=== PATIENT | male | born 1995 | race American Indian/Alaskan Native ===

== ENCOUNTER 2020-05-24 06:38 | Emergency (ER) | payer SELFPAY ==
[2020-05-24] MEDS ORDERED: NEOMY 3.5 MG/BACIT 400 UNITS/POLY B 5000 UNITS/GM OINT PACKET TP ONE (10:00)
[2020-05-24] MEDS ORDERED: DIPHtheria,PERTUSSIS(ACELL),TETANUS VACCINE/PF 0.5 ML VIAL IM ONE (10:00)
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
[2020-05-24 10:47] VITALS: BP 146/96
== END 2020-05-24 10:34 | disposition home or self-care (01) ==
LOC: ED 06:38
DX: S50.812A Abrasion of left forearm, initial encounter (principal); M79.662 Pain in left lower leg; V49.59XA Passenger injured in collision with other motor vehicles in traffic accident, initial encounter; W22.10XA Striking against or struck by unspecified automobile airbag, initial encounter; Y93.89 Activity, other specified; Y92.410 Unspecified street and highway as the place of occurrence of the external cause; Y99.8 Other external cause status
CPT/HCPCS: 90471; 90715; A6250